=== PATIENT | female | born 1960 | race Hispanic/Latino ===

== ENCOUNTER 2018-02-05 12:47 | Inpatient (IN) | payer MEDICARE, BC, MEDICAID ==
[2018-02-05 14:52] LABS: #Eosinphils 0.2 thou/uL (0.0-0.7); #Lymphocytes 1.2 thou/uL (1.20-3.40); #Monocytes 0.5 thou/uL (0.11-0.59); #Neutrophils 3.2 thou/uL (1.40-6.50); %Basophils 0.5 % (0.0-1.0); %Eosinophils 4.4 % (0.0-10.0); %Lymphocytes 23.7 % (21.0-51.0); %Monocytes 10.3 % (0.0-10.0); %Neutrophils 61.1 % (42.0-75.0); Hemoglobin 12.4 g/dL (12.0-16.0); Mean Corpuscular HGB CONC 33.5 g/dL (32.0-36.0); Mean Corpuscular Hemoglobin 34.8 pg (27.0-31.0); Mean Platelet Volume 11.6 fL (7.4-10.4); Platelet Count 60 thou/uL (130-400); RBC Distribution Width 16.2 % (11.5-14.5); Red Blood Cell (RBC) Count 3.58 mill/uL (4.20-5.40); White Blood Cell (WBC) Count 5.2 thou/uL (4.8-10.8)
[2018-02-05 15:04] LABS: MDiff Complete? YES; Macrocytosis SLIGHT = 6-15 cells (100X) (0-5/hpf); PLT Morphology Comment Appears Decreased; Polychromasia MODERATE = 3-4 cells (100X) (0-2/hpf)
[2018-02-05 15:16] LABS: ALT (SGPT) 22 U/L (8-55); AST (SGOT) 54 U/L (5-34); Albumin 4.1 g/dL (3.5-5.0); Alkaline Phosphatase 309 U/L (40-150); Anion Gap 20 mmol/L (10-20); BUN (Urea Nitrogen) 32 mg/dL (9.8-20.1); Bilirubin, Total 0.8 mg/dL (0.2-1.2); Calc. Creatinine Clearance 0 mL/min (70-130); Calcium 9.1 mg/dL (7.8-10.44); Carbon Dioxide 22 mmol/L (22-29); Chloride 96 mmol/L (98-107); Estimated GFR-MDRD 11; Glucose 216 mg/dL (70-105); Potassium 4.8 mmol/L (3.5-5.1); Protein, Total 9.1 g/dL (6.0-8.3); Sodium 133 mmol/L (136-145)
--- NOTE | 2018-02-05 16:47 | RAD ---
LEFT FOOT THREE VIEWS: 02/05/18 HISTORY: Left heel wound. End-stage renal disease. Patient went to dialysis today. Left foot pain. FINDINGS/IMPRESSION: Comparison made with exam of 11/03/15. Vascular calcifications are again noted. Calcaneal spurs are present. No fracture, dislocation, bony destruction or periosteal reaction is identified. If there is concern for acute osteomyelitis, furthe r evaluation with MRI should be performed. POS: OFF
[2018-02-05] MEDS ORDERED: Vancomycin HCl 1 GM in Premix Bag 1 BAG IVPB SCH (18:30)
[2018-02-05] MEDS ORDERED: cefTRIAXone\\ROCEPHIN 2 GM in Sodium Chloride 0.9% 100 ML IVPB SCH (18:30)
[2018-02-05 18:50] LABS: Lactic Acid 1.7 mmol/L (0.5-2.2)
[2018-02-05] MEDS ORDERED: Ondansetron HCl/PF 4 MG/2 ML Vial IVP PRN (20:38)
[2018-02-05] MEDS ORDERED: Ondansetron ODT 4 MG TAB SL PRN (20:38)
[2018-02-05] MEDS ORDERED: Fentanyl 100 MCG/2 ML VIAL SLOW IVP PRN (21:17)
[2018-02-06 00:11] VITALS: BMI 36.7
[2018-02-06] MEDS ORDERED: cloNIDine 0.1 MG TAB PO PRN (01:03)
[2018-02-06] MEDS ORDERED: hydrALAZINE 20 MG/ML VIAL SLOW IVP PRN ×2 (01:03→05:10)
[2018-02-06] MEDS ORDERED: Calcium Carbonate 500 MG ChewTAB PO PRN (05:03)
[2018-02-06] MEDS ORDERED: Ondansetron ODT 4 MG TAB PO PRN (05:03)
[2018-02-06] MEDS ORDERED: VANCOMYCIN/ RENALLY ADJUST ANTIBIOTICS IVPB PRN (05:03)
[2018-02-06] MEDS ORDERED: Senokot 8.6 MG TAB PO PRN (05:03)
[2018-02-06] MEDS ORDERED: Ondansetron HCl/PF 4 MG/2 ML Vial IVP PRN (05:03)
[2018-02-06] MEDS ORDERED: Acetaminophen 325 MG TAB PO PRN (05:03)
[2018-02-06] MEDS ORDERED: Dextrose 50% Abboject 50 ML SYRINGE SLOW IVP PRN (05:11)
[2018-02-06] MEDS ORDERED: Dextrose 5% in Water 1,000 ML IV PRN (05:11)
[2018-02-06] MEDS ORDERED: Insulin Regular 300 UNITS/3 ML VIAL SC PRN (05:11)
[2018-02-06] MEDS ORDERED: Vancomycin HCl 1 GM in Premix Bag 1 BAG IVPB SCH ×2 (05:15→05:45)
--- NOTE | 2018-02-06 05:40 | HP ---
DATE OF ADMISSION: 02/05/2018 The patient was seen and examined on 02/05/2018. PRIMARY CARE PHYSICIAN: Dr. Cole. PRIMARY NIKE ATHLETE: Dr. Garrido. CHIEF COMPLAINT: Left foot pain. HISTORY OF PRESENT ILLNESS: Patient is a 57-year-old female with end-stage renal disease on hemodial ysis, coronary artery disease, hypertension, and diabetes mellitus type 2, presented to the emergency room from the dialysis center with above complaints. Over the last one month, patient developed an ulcer over the left heel that is progressively getting worse. The patient is followed [facility]. She was recently started on antibioti cs without much relief. Lately, she has been having intermittent chills. Her maximum temperature at home was around 100. The pain and discoloration has been worsening lately. She could not complete her dialysis and presented to the emergency room for evaluation. No injuries to the left foot report ed. She denies any other complaints. The pain over the left foot is moderate to severe in intensity without any aggravating or relieving factor. PAST MEDICAL HISTORY: 1. Diabetes mellitus type 2. 2. End-stage renal disease on hemodialysis. 3. Coronary artery disease, status post stent placement. 4. Hypertension. 5. End-stage renal disease on hemodialysis. 6. Hypothyroidism. PAST SURGICAL HISTORY: 1. . 2. Dialysis access. 3. Bilateral eye surgery. ALLERGIES: No known drug allergies. CURRENT HOME MEDICATIONS: Levothyroxine 150 mcg daily, Zofran as needed, simvastatin 40 mg at bedtim e, carvedilol 6.25 mg daily, aspirin 81 mg daily, Lantus 90 units daily with Humalog 15 units t.i.d. FAMILY HISTORY: Diabetes runs in her family. SOCIAL HISTORY: Patient is , lives at home with her family. No alcohol, tobacco, or drug use . REVIEW OF SYSTEMS: The following complete review of systems was negative, unless otherwise mentioned in the HPI or below: Constitutional: Weight loss or gain, ability to conduct usual activities. Skin: Rash, itching. Eyes: Double vision, pain. ENT/Mouth: Nose bleeding, neck stiffness, pain, tenderness. Cardiovascular: Palpitations, dyspnea on exertion, orthopnea. Respiratory: Shortness of breath, wheezing, cough, hemoptysis, fever or night sweats. Gastrointestinal: Poor appetite, abdominal pain, heartburn, nausea, vomiting, constipation, or diarr hea. Genitourinary: Urgency, frequency, dysuria, nocturia. Musculoskeletal: Pain, swelling. Neurologic/Psychiatric: Anxiety, depression. Allergy/Immunologic: Skin rash, bleeding tendency. PHYSICAL EXAMINATION: VITAL SIGNS: Temperature 99.5, respiration 18, pulse rate of 91, blood pressure 144/64 with O2 satur ation 100% on room air. GENERAL: A 57-year-old female in mild to moderate distress due to left heel pain. HEENT: Head, atraumatic, normocephalic. Sclerae are anicteric. Moist mucous membranes. No oral le isreal. NECK: Supple, no JVD appreciated. No carotid bruit. LUNGS: Clear to auscultation bilaterally. HEART: S1, S2 present. Regular rate and rhythm. No rubs or gallops appreciated. ABDOMEN: Soft, nontender, bowel sounds present. EXTREMITIES: No calf edema or tenderness. There is approximately 3 x 2 cm area of black eschar with surrounding erythema over the left heel. It was tender on superficial palpation. There was also so me redness extending towards the ankle. SKIN: As discussed above. LYMPH NODES: No palpable lymph nodes in the neck. NEUROLOGIC: Grossly nonfocal, moves all four extremities. PSYCHIATRIC: Alert, awake, oriented x3. LABORATORY AND X-RAY FINDINGS: CBC showed WBC of 5.2 with hemoglobin 12.4, hematocrit 37.1, platelet count of 60. Chemistries showe d sodium 133, potassium 4.8, chloride 96, bicarbonate 22, BUN 32, creatinine 4.33. Lactic acid was 2 .2. X-ray of the foot by my review was negative for acute findings. There was no foreign bodies fra cture or gas noted. IMPRESSION: 1. Infected left foot diabetic ulcer with surrounding cellulitis. Please note patient failed outpat ient therapy. 2. Diabetes mellitus type 2. 3. End-stage renal disease on hemodialysis. 4. Coronary artery disease, status post stent placement. 5. Hypertension. 6. Obesity with a BMI of 36.7. 7. Chronic thrombocytopenia. 8. Mild hyponatremia. 9. Hypothyroidism. PLAN: The patient will be monitored on the medical floor. Nephrology will be consulted for dialysis management. We will consult Infectious Disease, Dr. Curran. We will continue vancomycin and ceftria xone for now. We will monitor vancomycin level. We will check CRP in a.m. Further management per I nfectious Disease. We will resume home medications. Insulin sliding scale. Plan of care was discussed with the patient. She stated understanding. The patient will require 2 to 3 days for stabilization. Wound Care will be consulted.
[2018-02-06] MEDS ORDERED: Vancomycin HCl 500 MG in Sodium Chloride 0.9% 100 ML IVPB SCH (05:45)
[2018-02-06] MEDS ORDERED: Vancomycin HCl 750 MG in Sodium Chloride 0.9% 250 ML 250 ML IVPB SCH (05:45)
[2018-02-06] MEDS ORDERED: Vancomycin HCl 1.25 GM in Sodium Chloride 0.9% 250 ML 250 ML IVPB SCH (05:45)
[2018-02-06] MEDS ORDERED: HOLD VANCOMYCIN FOR LEVEL >20 FS SCH (05:45)
[2018-02-06] MEDS: Insulin Regular 300 UNITS/3 ML VIAL SC PRN ×2 (05:53→18:00)
[2018-02-06] MEDS ORDERED: Levothyroxine 150 MCG TAB PO SCH (06:00)
[2018-02-06 06:01] LABS: #Eosinphils 0.3 thou/uL (0.0-0.7); #Lymphocytes 1.6 thou/uL (1.20-3.40); #Monocytes 0.5 thou/uL (0.11-0.59); #Neutrophils 1.9 thou/uL (1.40-6.50); %Basophils 0.8 % (0.0-1.0); %Eosinophils 7.4 % (0.0-10.0); %Lymphocytes 36.5 % (21.0-51.0); %Monocytes 11.5 % (0.0-10.0); %Neutrophils 43.8 % (42.0-75.0); Hemoglobin 10.7 g/dL (12.0-16.0); Mean Corpuscular HGB CONC 33.3 g/dL (32.0-36.0); Mean Corpuscular Hemoglobin 34.3 pg (27.0-31.0); Mean Platelet Volume 10.1 fL (7.4-10.4); Platelet Count 58 thou/uL (130-400); RBC Distribution Width 16.3 % (11.5-14.5); Red Blood Cell (RBC) Count 3.13 mill/uL (4.20-5.40); White Blood Cell (WBC) Count 4.3 thou/uL (4.8-10.8)
[2018-02-06 06:13] LABS: Anion Gap 15 mmol/L (10-20); BUN (Urea Nitrogen) 42 mg/dL (9.8-20.1); Calc. Creatinine Clearance 16 mL/min (70-130); Calcium 8.7 mg/dL (7.8-10.44); Carbon Dioxide 24 mmol/L (22-29); Chloride 99 mmol/L (98-107); Estimated GFR-MDRD 9; Glucose 226 mg/dL (70-105); Potassium 4.4 mmol/L (3.5-5.1); Sodium 134 mmol/L (136-145)
[2018-02-06] MEDS: Carvedilol 3.125 MG TAB PO SCH ×2 (08:59→16:36)
[2018-02-06] MEDS: HYDROcodone/Acetaminophen 10/325 mg Tablet PO PRN ×2 (08:59→15:33)
[2018-02-06] MEDS ORDERED: Aspirin 81 mg Enteric Coated Tablet PO SCH (09:00)
[2018-02-06] MEDS ORDERED: cefTRIAXone\\ROCEPHIN 1 GM in Sterile Water 10 ML SLOW IVP SCH (09:00)
[2018-02-06] MEDS ORDERED: Insulin Detemir 100 UNITS/ML 30 UNITS in Pre-Filled Syringe 1 EACH SC SCH (09:00)
[2018-02-06] MEDS ORDERED: LEVOCARNITINE 500 MG PO SCH (09:00)
[2018-02-06 09:28] LABS: Vancomycin, Random 17.3 ug/mL (See Comment)
[2018-02-06] MEDS ORDERED: Morphine 4 MG/ML Carpuject SLOW IVP PRN (11:45)
[2018-02-06] MEDS: Fentanyl 100 MCG/2 ML VIAL SLOW IVP PRN ×2 (12:03→16:36)
[2018-02-06 16:37] VITALS: BP 172/63; TEMP 98.4
--- NOTE | 2018-02-06 20:45 | CON ---
NEPHROLOGY CONSULTATION NOTE DATE OF CONSULTATION: 02/06/2018 CONSULTING PHYSICIAN: Seferino Alvarez M.D. REASON FOR CONSULTATION: End-stage renal disease evaluation and care. REASON FOR ADMISSION: Left foot pain. HISTORY OF PRESENT ILLNESS: This is a 57-year-old female with history of type 2 diabetes, end-stage renal disease and hypertension who came to the hospital with left foot pain and is being treated for that. Nephrology is consulted for maintenance hemodialysis. Ms. Veloz has hemodialysis on , Thursday, and Thursday. Last dialysis was Thursday. No nausea or vomiting. No shortness of breath reported. No chest pain. PAST MEDICAL HISTORY: Positive for end-stage renal disease, on hemodialysis; coronary artery disease ; type 2 diabetes; hypertension and hypothyroidism. PAST SURGICAL HISTORY: , dialysis access and bilateral eye surgery. ALLERGIES: No known drug allergies. HOME MEDICATIONS: Levothyroxine, Zofran, simvastatin, carvedilol, aspirin, Lantus and Humalog. FAMILY HISTORY: Positive for diabetes. SOCIAL HISTORY: No smoking, alcohol, or illicit drug abuse. REVIEW OF SYSTEMS: The following complete review of systems was negative, unless otherwise mentioned in the HPI or below: Constitutional: Weight loss or gain, ability to conduct usual activities. Skin: Rash, itching. Eyes: Double vision, pain. ENT/Mouth: Nose bleeding, neck stiffness, pain, tenderness. Cardiovascular: Palpitations, dyspnea on exertion, orthopnea. Respiratory: Shortness of breath, wheezing, cough, hemoptysis, fever or night sweats. Gastrointestinal: Poor appetite, abdominal pain, heartburn, nausea, vomiting, constipation, or diarr hea. Genitourinary: Urgency, frequency, dysuria, nocturia. Musculoskeletal: Pain, swelling. Neurologic/Psychiatric: Anxiety, depression. Allergy/Immunologic: Skin rash, bleeding tendency. PHYSICAL EXAMINATION: GENERAL: This is a well-built female in no apparent distress. VITAL SIGNS: Temperature 97, pulse 72, respiratory rate 20 and blood pressure 146/61. HEENT: Atraumatic and normocephalic. Oral mucosa is moist. NECK: Supple. CARDIOVASCULAR: S1 and S2 heard. Rate and rhythm regular. RESPIRATORY: Clear. MUSCULOSKELETAL: 1+ edema. DERMATOLOGIC: No skin rash. NEUROLOGIC: Alert and awake. PSYCHIATRIC: Mood and affect normal. LABORATORY DATA: Hemoglobin is 10.7, potassium is 4.4, BUN is 42 and creatinine is 5.1. ASSESSMENT AND PLAN: 1. End-stage renal disease, no acute indication for dialysis. We will continue on dialysis Thursday, Thursday, and Thursday. 2. Hyponatremia. 3. Edema, controlled. 4. Hypertension. 5. Anemia. We will have Epogen. 6. Plan is to continue on dialysis Thursday, Thursday, and Thursday as tolerated. Thank you for the consult.
[2018-02-06] MEDS ORDERED: Atorvastatin Calcium 20 MG TAB PO SCH (21:00)
--- NOTE | 2018-02-06 23:16 | CON ---
DATE OF CONSULTATION: 02/06/2018 REASON FOR CONSULTATION: Left heel ulcer. HISTORY OF PRESENT ILLNESS: A 57-year-old patient who has a history of type 2 diabetes, peripheral v ascular disease, end-stage renal disease on hemodialysis through an AV fistula, coronary artery disea se who was admitted with left foot pain and ulceration. Previously evaluated at [facility] with recent CT angiogram which showed significant peripheral vascular disease; however, the angiogram did not have enough resolution to demonstrate areas of potential intervention. Therefore, patient had b een scheduled for a routine angiogram with intra-arterial administration of contrast; however, oc rocha developed worsening hyperglycemia and the team taking care of her at [facility] decid ed to discharge the patient for readmission at a later date for performance of the angiogram. In the meantime, the patient developed some chills and worsening pain and came to the emergency room in [facility] and was admitted. No headaches, no change in visual symptoms, sore throat, odynopha pricila, dysphagia, no cough with production, no chest pain or dyspnea. No abdominal pain, diarrhea. No genitourinary symptoms. PAST MEDICAL HISTORY: Type 2 diabetes, peripheral vascular disease, end-stage renal disease on hemod ialysis through an AV fistula, coronary artery disease with prior stenting, hypertension, and hypothy roidism. PAST SURGICAL HISTORY: , dialysis access placement. ALLERGIES: None. CURRENT MEDICATIONS: Tylenol, [place], Ecotrin, Lipitor, Tums, Coreg, Rocephin, Catapres, dextrose, in sulin, lactulose, vancomycin, and sliding scale. FAMILY HISTORY: Noncontributory. SOCIAL HISTORY: , never smoker. ALLERGIES: NONE. PHYSICAL EXAMINATION: VITAL SIGNS: Normal temperature, blood pressure 170/60, pulse 79, respirations 18, and O2 sat 95%. SKIN: Shows the area of unstageable ulceration of left heel with necrotic eschar covering 100% of th e base and oval shaped lesion measuring about 3 x 2.5 cm lateral aspect of left heel. No erythema is noted at this point in time. No lymphadenopathy. HEENT: Noncontributory. NECK: Supple. LUNGS: Symmetric clear breath sounds. HEART: S1, S2, regular rate. No S3, S4. ABDOMEN: Soft, nondistended or tender. No ascites. No bladder distention. EXTREMITIES: No joint inflammatory activity. I could not feel any popliteal or dorsalis pedis pulse s either side. Cap refill is around 4 seconds. She is able to move extremities on command. NEUROLOGIC: She is awake, oriented, follows commands. LABORATORY DATA: White cell count 4.3, hemoglobin 10, platelets 58,000, normal differential. Creati nine 5.16. Liver profile with AST 54, ALT 22, alkaline phosphatase 209. CRP 2.41. Serum total prot ein 9.1 and albumin 4.1. Foot x-ray from 02/05/2018, calcaneal spurs, but no other abnormality in th e bone noted. ASSESSMENT: Type 2 diabetes, end-stage renal disease on hemodialysis with AV fistula, peripheral vas cular disease and chronic ulcer of left heel. DISCUSSION: The patient's main problem here is the vascular disease. She needs to proceed with comp letion of the workup and an attempt to find an area that can be revascularized via angioplasty. At t his point, there is not a lot of inflammatory activity and I would advise to consider discharge plann ing on oral ciprofloxacin adjusted for renal function plus minocycline 100 mg twice daily for another 7 days approximately. The patient needs to reestablish care with her team at [facility] and [facility] getting ready for the angiogram. An alternate approach would be to just directly transfer her to [facility] to continue her management there. If that is not successful, then she would fernando ve to be assessed by our vascular specialist here in the hospital to proceed with the angiogram and a ttempted revascularization if feasible. The ulcer is unstageable and may require further evaluation with an MRI to rule out bone involvement. After the vascular issues are resolved, to determine if humberto holm would require protracted antimicrobial therapy.
--- NOTE | 2018-02-09 09:45 | DIS ---
DATE OF ADMISSION: 02/06/2018 DATE OF DISCHARGE: 02/06/2018 ADMITTING DIAGNOSIS: Left foot diabetic ulcer. DISCHARGE DIAGNOSES: Left foot diabetic ulcer with severe peripheral vascular disease. SECONDARY DIAGNOSES: 1. Type 2 diabetes mellitus. 2. End-stage renal disease on hemodialysis. 3. Coronary artery disease status post stents. 4. Hypertension. 5. Obesity. 6. Chronic thrombocytopenia. 7. Mild hyponatremia. 8. Hypothyroidism. CONSULTANTS: Dr. Curran from Infectious Disease. HISTORY OF PRESENT ILLNESS/HOSPITAL COURSE: In brief, this is a 57-year-old white female with a know n history of end-stage renal disease and history of coronary artery disease, hypertension, type 2 jamir betes mellitus which were well controlled. The patient was initially seen at [facility] and has been thoroughly evaluated for vascular disease of lower extremity and the patient was suppo sed to be followed up with them for further imaging as they were preparing for peripheral arterial st enting, but the patient, because of the pain she had when she came to the [place] ER and was admi tted for further evaluation of the pain. The patient was seen by Infectious Disease and the patient was started on IV antibiotics on vancomycin and Rocephin, but as the patient has had a complete iona p pending at [facility], it was decided that the best interest of the patient care, the patient needed to be transferred to [facility] to continue their evaluation of her art erial access and stenting. So I discussed the case with aviation project engineer Hospitalist at [facility] and e xplained that Dr. Eubanks from [facility] Cardiology was evaluating this patient's peripheral art erial access. So the patient was agreed to be transferred to [facility] and the patien t was transferred in a stable condition. PHYSICAL EXAMINATION: On date of discharge: VITAL SIGNS: Blood pressures were 146/61, heart rate 76, respirations 20, saturation 98%. GENERAL: The patient is moderately nourished. CARDIOVASCULAR: S1, S2 normal. No murmurs, rubs or gallops. LUNGS: Bilateral air entry was equal. No wheezing, no crackles. ABDOMEN: Soft, nontender, no guarding, no rebound tenderness. MUSCULOSKELETAL: The patient has a left lower extremity pain with a chronic nonhealing ulcer. DISCHARGE MEDICATIONS: 1. Coreg 6.25 mg daily. 2. . 3. Lunesta. 4. Humalog 15 units subcu t.i.d.. 5. Insulin Glargine 90 units subcutaneously daily. 6. Linagliptin 5 mg p.o. daily. 7. Vitamin E. 8. Aspirin 81 mg daily. DISCHARGE INSTRUCTIONS: Continue activity as tolerated. Advised to follow up with instructions per Cardiology at [facility]. The patient will be transferred through ambulance directly to [facility] inpatient. Time spent 35 minutes with patient on day of transfer to the other hospital.
--- NOTE | 2018-03-01 11:38 | EKG ---
Test Reason : ROUTIEN Blood Pressure : / mmHG Vent. Rate : 083 BPM Atrial Rate : 083 BPM P-R Int : 198 ms QRS Dur : 134 ms QT Int : 430 ms P-R-T Axes : 053 -78 029 degrees QTc Int : 505 ms Normal sinus rhythm Right bundle branch block Left anterior fascicular block Bifascicular block Abnormal ECG When compared with ECG of 03-NOV-2015 09:37, No significant change was found Confirmed by JEFFERSON CRUZ M.D. ([id number]) on 03/01/2018 11:37:41 AM Referred By: Confirmed By:JEFFERSON CRUZ M.D.
== END 2018-02-06 18:25 | disposition short-term general hospital (02) | DRG 299 ==
LOC: ERS 12:47 → OBSVTOIN 20:31 → SURG A 20:31
PROVIDERS: ADMIT Internal Medicine; ATTEND Internal Medicine
DX: E11.51 Type 2 diabetes mellitus with diabetic peripheral angiopathy without gangrene (principal); N18.6 End stage renal disease; E11.621 Type 2 diabetes mellitus with foot ulcer; E11.22 Type 2 diabetes mellitus with diabetic chronic kidney disease; D69.6 Thrombocytopenia, unspecified; I12.0 Hypertensive chronic kidney disease with stage 5 chronic kidney disease or end stage renal disease; E11.628 Type 2 diabetes mellitus with other skin complications; L97.428 Non-pressure chronic ulcer of left heel and midfoot with other specified severity; L03.116 Cellulitis of left lower limb; E87.1 Hypo-osmolality and hyponatremia; Z99.2 Dependence on renal dialysis; I25.10 Atherosclerotic heart disease of native coronary artery without angina pectoris; D63.1 Anemia in chronic kidney disease; R60.9 Edema, unspecified; E03.9 Hypothyroidism, unspecified; E66.9 Obesity, unspecified; Z68.36 Body mass index [BMI] 36.0-36.9, adult; Z95.5 Presence of coronary angioplasty implant and graft; F41.8 Other specified anxiety disorders; Z79.4 Long term (current) use of insulin; Z79.82 Long term (current) use of aspirin
CPT/HCPCS: 36415; 36416; 80048; 80053; 80202; 83605; 85025; 86140; 87040; 87070; 87205; 93005; 93010; 96374; A4216; J0360; J0696; J1815; J3010; J3370; J7050

== ENCOUNTER 2018-02-11 09:16 | Outpatient (CLI) | payer MEDICARE, OTHER ==
[~2018-02-11 09:16] MED LIST: Sodium Chloride 0.9% 15 ML NEB ONE
--- NOTE | 2018-02-11 12:14 | HP ---
DATE OF SERVICE: 02/11/2018 HISTORY OF PRESENT ILLNESS: Ms. Krys Cha is a very pleasant 57- year-old accompanied by her daughter who presents to the Wound Center for evaluation of an ulceration of the left heel. The patient states that the ulceration has been present for approximately 2 months. The patient states with her daughter serving as stitchdown toe former that she first noted cracking of her left lateral heel which later became associated with an infectious process. The patient reports no history of pressure to the left lateral heel. The patient states that she was seen at [facility] and given a shoe to promote the healing of the wound by Dr. Ro of Podiatry. The patient was referred to the Wound Center by Dr. Juan C Cole. The patient is status post percutaneous revascularization of her left lower extremity by Cardiology at [facility] in [place] 3 days ago. PAST MEDICAL HISTORY: 1. Diabetes mellitus. 2. Hypertension. 3. Coronary artery disease. 4. Peripheral vascular disease. 5. Left eye prosthesis. 6. End-stage renal disease. 7. Hypothyroidism. 8. Anemia. 9. Visual loss. 10. Psoriasis. PAST SURGICAL HISTORY: 1. x1. 2. Bilateral cataract surgery. 3. Left eye surgery. 4. Left and right upper extremity surgery. 5. Dialysis access procedures. 6. Cholecystectomy. MEDICATIONS: 1. Humalog. 2. Epogen. 3. Aspirin 81 mg. 4. L-carnitine. 5. Vitamin E. 6. Coreg. 7. Vitamin D. 8. Hydrocodone. 9. Synthroid. 10. Eszopiclone. 11. Tradjenta. 12. Simvastatin. ALLERGIES: DILAUDID. SOCIAL HISTORY: Negative for tobacco or ETOH use. FAMILY HISTORY: Significant for diabetes mellitus. The patient states that her mother, father, and sister were all diagnosed with diabetes mellitus. Family history is negative for coronary artery disease. PHYSICAL EXAMINATION: VITAL SIGNS: Temperature 98.4, pulse 80, respirations 19, blood pressure 158/ 62. Accu-Chek 206. GENERAL: A 57-year-old female sitting on chair in examination room in no acute distress. HEENT: Normocephalic, atraumatic. NECK: No nuchal rigidity. CHEST: Clear to auscultation. CARDIAC: Regular rate and rhythm. ABDOMEN: Soft. EXTREMITIES: An ulceration of the left lateral heel is present which measures approximately 2.4 x 4.0 cm. The entire wound bed is covered by dry stable eschar. No serous or purulent drainage is associated with the wound. No erythema of the skin surrounding the wound is present. No maceration of the skin of the periwound is noted. A dorsalis pedis pulse is palpable on the left. No significant edema of the left foot or lower leg is present on exam today. ASSESSMENT AND PLAN: 1. Left heel ulceration as described above. The patient has been asked to continue to keep her left heel wound clean and dry and covered. 4 x 4s and Kerlix will be utilized to dress the ulceration today. The importance of offloading in facilitating the healing of the wound has also been discussed with Ms. Magdiel Cha today. The patient has been reassured that with the percutaneous revascularization of her left lower extremity, the healing of the wound should proceed more rapidly. No antibiotics will be prescribed today based upon the appearance of the wound. Ms. Magdiel Cha will return to clinic on an as needed basis. She has been asked to return to clinic should she note any signs of infection associated with her wound such as erythema of the periwound, swelling of her left foot, warmth of her left foot, pain of her left heel, or any serous or purulent drainage associated with the wound. The patient's daughter also understands and is in agreement with the preceding treatment plan. 2. Diabetes mellitus. The patient's Accu-Chek in clinic today is 206. The patient has been told that for optimal wound healing, her blood glucoses should remain below 150. 3. Hypertension. 4. Coronary artery disease. 5. Peripheral vascular disease. 6. Left eye prosthesis. 7. End-stage renal disease. 8. Hypothyroidism. 9. Anemia 10. Visual loss. 11. Psoriasis. MTDD
== END 2018-02-11 09:17 | disposition home or self-care (01) ==
LOC: WCC 09:16
PROVIDERS: ATTEND Family Medicine
DX: E11.621 Type 2 diabetes mellitus with foot ulcer (principal); L97.429 Non-pressure chronic ulcer of left heel and midfoot with unspecified severity; I10 Essential (primary) hypertension; I73.9 Peripheral vascular disease, unspecified; N18.6 End stage renal disease; E03.9 Hypothyroidism, unspecified; D64.9 Anemia, unspecified; H54.7 Unspecified visual loss; Z97.0 Presence of artificial eye; L40.9 Psoriasis, unspecified; Z90.49 Acquired absence of other specified parts of digestive tract
CPT/HCPCS: 82962; 97139; 97602; G0463; 36416; 99203; A4218

== ENCOUNTER 2018-05-11 10:27 | Outpatient (CLI) | payer MEDICARE, MEDICAID | END 2018-05-11 10:28 | disposition home or self-care (01) | LOC: BICRAD 10:27 | PROVIDERS: ATTEND Internal Medicine Nephrology | DX: Z03.89 Encounter for observation for other suspected diseases and conditions ruled out (principal) | CPT/HCPCS: 71046 ==